=== PATIENT | female | born 1935 | race Caucasian/White ===

== ENCOUNTER 2025-01-31 13:43 | Outpatient (REF) | payer SELFPAY ==
--- OUTSIDE RECORDS SUMMARY | 2025-01-31 15:01 | XMS_ITS | Clinical Summary ---
Author Organization [facility] Address [address] [facility] [address] [place] [phone] Phone Care Team Providers Care Gripper Installer Name Role Phone Sissy Choi MD Primary Care Pr ovider Allergies Active Allergy Reactions Criticality Noted Date Comments Ciprofloxacin-Hydrocortisone 025 weakness Lisinopril 10/25/2024 Metronidazole Hcl 10/25/2024 Medications levothyroxine (SYNTHROID, LEVOTHROID) 50 MCG tablet Take 25 mcg by mouth every morning. 5 Active amLODIPine (NORVASC) 5 MG tablet Take 5 mg by mouth daily. 5 Active atenolol (TENORMIN) 25 MG tablet Take 25 mg by mouth daily. 5 Active chlorthalidone (HYGROTON) 25 MG tablet Take 25 mg by mouth daily. Active cholecalciferol (VITAMIN D3) 25 MCG (1,000 unit) tablet Take 1,000 Units by mouth daily. 5 Active acetaminophen (TYLENOL) 500 MG tablet Take 1,000 mg by mouth every 8 (eight) hours as needed for pain (specific location in comments) (back pain). 5 Active diclofenac sodium (VOLTAREN) 1 % Gel Apply 2 g topically 2 (two) times a day as needed for other (free text field) (back pain). Active naproxen sodium (ALEVE) 220 MG tablet Take 220 mg by mouth every 12 (twelve) hours as needed for pain (specific location in comments) (back). 05/27/202 5 Active Encounters Date Type Department Care Team Description 11/09/2024 10:00 AM EDT Home Care Visit [facility] [address] [place] [phone] Elaine Lazo, PT PT OASIS DISCHARGE VISIT 11/07/2024 10:00 AM EDT Home Care Visit [facility] [address] [place] [phone] Elaine Lazo, PT PT HOME VISIT 11/02/2024 10:15 AM EDT Home Care Visit [facility] [address] [place] [phone] Elaine Lazo, PT PT HOME VISIT 10/31/2024 2:15 PM EDT Home Care Visit [facility] [address] [place] [phone] Elaine Lazo, PT PT HOME VISIT from Last 3 Months Social History Tobacco Use Types Packs/Day Years Used Date Smoking Tobacco: Never Assessed Home Health Assessment: Transportation Answer Date Recorded Lack of Transportation (Medical) No 11/09/2024 Lack of Transportation (Non-Medical) No 11/09/2024 Patient Unable or Declines to Respond No 11/09/2024 Education Answer Date Recorded Are you interested in more education? Not on tim e 10/23/2024 Are you concerned about learning? Not on file 10/23/2024 No 10/23/2024 No 10/23/2024 Digital Access Answer Date Recorded No 10/23/2024 No 10/23/2024 Reliable internet access at home? Not on file 10/23/2024 Device with a working camera? Not on file Comments Unknown Sex and Gender Information Value Date Recorded Sex Assigned at Not on file Legal Sex Female 2:33 PM EDT Gender Identity Not on file Sexual Orientation Not on file Last Filed Vital Signs Vital Sign Reading Time Taken Comments Blood Pressure 112/72 11/09/2024 10:07 AM EDT Pulse 58 11/09/2024 10:07 AM EDT Temperature - - Respiratory Rate - - Oxygen Saturation 98% 11/09/2024 10:07 AM EDT Inhaled Oxygen Concentration - - Weight - - Height - - Body Mass Index - - Plan of Treatment Not on file Medical Devices Not on file [place] [address] [place] [address] [place] [address] [place] [address] Care Teams Gripper Installer Relationship Specialty Start Date End Date Sissy Choi MD [address] [place] [phone] PCP - General 10/24/24 Additional Source Comments The information contained in this document represents components of the legal health record. It is not the complete legal health record.[facility]
--- OUTSIDE RECORDS SUMMARY | 2025-01-31 15:02 | XMS_ITS | Clinical Summary ---
Author Organization [facility] [address] Address [address] [place] [address] Phone Care Team Providers Care Legal Records Clerk Name Role Phone Sissy Choi MD Primary Care Prov ider Allergies Active Allergy Reactions Criticality Noted Date Comments Ciprofloxacin-Hydrocortisone Weakness 009 Lisinopril Other 11/22/2010 Hyperkalemia (5.7) and increase in Cr to 1.6 Metronidazole Hcl 09/06/2008 Medications atenoloL (TENORMIN) 25 mg tablet TAKE 1 TABLET BY MOUTH EVERY DAY 90 tablet 1 10/20/19 25 Active amLODIPine (NORVASC) 5 mg tablet TAKE 1 TABLET BY MOUTH EVERY DAY 90 tablet 1 10/20/19 25 Active levothyroxine (SYNTHROID, LEVOTHROID) 25 mcg tablet TAKE 1 TABLET BY MOUTH EVERY DAY 90 tablet 1 12/08/19 25 Active acetaminophen (TYLENOL) 500 mg tabletIndicati ons:Compressio n fracture of L1 lumbar vertebra, sequela Take 1 tablet (500 mg total) by mouth every 6 (six) hours if needed for moderate pain. 90 tablet 2 12/22/19 25 Active chlorthalidone (HYGROTON) 25 mg tablet TAKE 1 TABLET BY MOUTH 1 TIME EACH DAY. 90 tablet 1 01/18/20 25 Active ibuprofen (ADVIL,MOTRIN) 200 mg tablet Take by mouth every 6 (six) hours if needed. Active chlorthalidone (HYGROTON) 25 mg tablet Take 1 tablet (25 mg total) by mouth 1 (one) time each day. 90 each 1 04/12/20 24 025 Discontinued gabapentin (NEURONTIN) 300 mg capsule Take 1 capsule (300 mg total) by mouth at bedtime. 30 each 2 11/09/19 25 025 Discontinued(Re order) gabapentin (NEURONTIN) 300 mg capsule Take 1 capsule (300 mg total) by mouth at bedtime. 90 capsule 1 01/18/20 25 025 Discontinued(Th erapy completed) Active Problems Problem Noted Date Diagnosed Date Compression fracture of L1 lumbar vertebra, sequ tra 11/01/2024 Overview (11/01/2024): CT scan 10/2024 shows compression fracture L1-L2. 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 Also with left hearing loss, but pt states hearing aids didn't help her much Subclinical hypothyroidism 02/19/2016 Cyst of right ovary 08/08/2015 Overview (03/22/2024): Benign appearance (simple cyst) and very slow growth, no need to remove Hearing loss of right ear 07/25/2014 Overview (03/22/2024): chronic Leg swelling 11/13/2011 CKD (chronic kidney disease) stage 3, GFR 30-59 ml/min ([facility] V24, [facility] V28) 06/03/2010 Inflammatory arthritis 05/06/2010 Overview (03/22/2024): Onset 2009. RF, MADELINE neg Essential hypertension, benign 05/05/2005 Disorder of bone and cartilage 05/05/2005 Overview (03/22/2024): IMO update Encounters Date Type Department Care Team Description 01/25/2025 2:30 PM EDT Office Visit [address] [phone] Sissy Denton MD Compression fracture of T9 vertebra with routine healing, subsequent encounter (Primary Dx); Eye exam, routine; Chronic low back pain, unspecified back pain laterality, unspecified whether sciatica present; Inflammatory arthritis; Secondary hypertension; Bilateral hearing loss, unspecified hearing loss type 01/19/2025 Billing Patient Not Present [address] [phone] Sissy Denton MD Hypertensive chronic kidney disease with stage 1 through stage 4 chronic kidney disease, or unspecified chronic kidney disease (Primary Dx); Stage 3 chronic kidney disease, unspecified whether stage 3a or 3b CKD (CMS/HCC V24, CMS/HCC V28); Inflammatory polyarthropathy (CMS/HCC V24, CMS/HCC V28); Scoliosis, unspecified scoliosis type, unspecified spinal region; Asymptomatic varicose veins of bilateral lower extremities 01/17/[address] [phone] Sissy Denton MD 12/21/2024 3:57 PM EDT - 12/21/2024 11:59 PM EDT Hospital Encounter [address] [phone] Compression fracture of L1 lumbar vertebra, sequela Discharge Disposition: Home or Self Care 12/21/2024 3:57 PM EDT - 12/21/2024 11:59 PM EDT Hospital Encounter [address] [phone] Compression fracture of L1 lumbar vertebra, sequela Discharge Disposition: Home or Self Care 12/21/2024 3:30 PM EDT Office Visit [address] [phone] Sissy Denton MD Compression fracture of L1 lumbar vertebra, sequela (Primary Dx); Chronic bilateral thoracic back pain; Inflammatory arthritis 12/19/[address] [phone] Sissy Denton MD 11/22/[address] [phone] Sissy Denton MD 11/09/[address] [phone] Sissy Denton MD 11/03/[address] [phone] Sissy Denton MD 11/01/2024 1:30 PM EDT Office Visit [address] [phone] Sissy Denton MD Compression fracture of T9 vertebra with routine healing, subsequent encounter (Primary Dx); Compression fracture of L1 lumbar vertebra, sequela; Osteoporosis with current pathological fracture with routine healing, unspecified osteoporosis type, subsequent encounter from Last 3 Months Immunizations Name Administration Dates Next Due Influenza Quadravalent, 0.5m l (Fluzone High-dose) 65yo and older 04/30/2022 Influenza trivalent, 0.5mL ( Fluad) 65yo and older 03/05/2023,04/30/2022,04/17/2021,02/21,03/23/2019,02/22/2018 Influenza trivalent, 0.5mL ( Fluzone High-dose) 65yo and older 03/05/2023,04/17/2021,02/22/2020,02/22 Pfizer (ages 12 & older) Biv alent, COVID-19 04/30/2022 Pfizer SARS-CoV-2 COVID-19, mRNA, LNP-S, preservative free 07/27/2020,07/23/2020,07/06/2020,07/02 Pneumococcal polysaccharide 23 valent (Pneumovax 23) 2yo and older 05/05/2002 Surgical History Surgery Date Site/Laterality Comments CATARACT EXTRACTION Left PROCEDURE: HISTORICAL CATARACT REMOVAL Medical History Medical History Date Comments Disorder of bone and cartila ge, unspecified 05/05/2005 DX:Disorder of bone and cart ilage, unspecified Essential hypertension, benign 05/05/2005 D X:Essential hypertension, benign Diverticulitis 11/28/2009 DX:Diverticuliti s Esophageal reflux 05/05/2005 DX:Esophageal reflux Renal insufficiency 08/30/2008 DX:Renal ins ufficiency Compression fracture of lumb ar vertebra (CMS/HCC V24, CMS/HCC V28) ?2005 DX:Compression fra cture of lumbar vertebra (HCC); COMMENT: ?trauma GERD (gastroesophageal reflux disease) DX:GERD (gastroesophageal reflux disease) Family History Medical History Relation Name Comments Colon cancer Brother 1 Breast cancer Sister 1 age 60's older than 50 Heart attack Sister 2 Ovarian cancer Neg Hx Uterine cancer Neg Hx Relation Name Status Comments Brother 1 Brother 2 Alive 7 BROTHERS-1COL ON CANCER/2 LUNG CANCER Daughter Alive thyroid problem s Father (Age 95) Maternal Grandfather Maternal Grandmother Mother (Age 85) ?COLON CAN CER - pt recalls mom had a colostomy Paternal Grandfather Paternal Grandmother Sister 1 age 60's Alive Sister 2 Sister 3 Alive 6 SISTERS-ALZHE IMERS Son Alive thyroid conditi on Social History Tobacco Use Types Packs/Day Years Used Date Smoking Tobacco: Former Smokeless Tobacco: Never Tobacco Cessation:Counseling Given: Not Answered Alcohol Use Standard Drinks/Week Comments Yes 0 (1 standard drink = 0.6 oz pur e alcohol) Comments No Sex and Gender Information Value Date Recorded Sex Assigned at Not on file Legal Sex Female 3:55 PM EST Gender Identity Not on file Sexual Orientation Not on file Obstetrics History Last Filed Vital Signs Vital Sign Reading Time Taken Comments Blood Pressure 138/78 01/25/2025 2:32 PM EDT Pulse 53 01/25/2025 2:32 PM EDT Temperature 36.7 C (98.1 F) 01/25/2025 2:32 PM EDT Respiratory Rate - - Oxygen Saturation - - Inhaled Oxygen Concentration - - Weight 55.1 kg (121 lb 6.4 oz) 01/25/2025 2:32 P M EDT Height 154.9 cm (5' 1 ) 12/21/2024 3:29 PM EDT Body Mass Index 22.94 12/21/2024 3:29 PM EDT Plan of Treatment Upcoming Encounters Date Type Department Care Team (Late st Contact Info) Description 05/03/2025 2:00 PM EST Office Visit Adult Medicine - [place] [address] [place] [phone] Sissy Choi MD [address] [place] [address] Health Maintenance Due Date Last Done Comments DTaP,Tdap,and Td Vaccines (1 - Tdap) 1954 Zoster Vaccines (1 of 2) 1954 Pneumococcal Vaccine: 50+ Years (2 of 2 - PCV) 05/05/2003 05/05/2002 RSV Immunization Adult Patients (1 - 1-dose 75+ series) 2010 Falls Risk Assessment 04/30/2022 Social Influencers of Health Screening 04/30/2022 COVID-19 Vaccine ( season) 2024 03/12/2023, 04/30/2022, 09/20/2021, Additional history exists Depression Screening 06/01/2024 Influenza Vaccine (#1) 2025 , 03/05/2023, 04/30/2022, Additional history exists Hypertension/CHF/CAD Annual BMP Blood Test 04/13/2025 04/13/2024, 07/21/2023 Osteoporosis Screening (Bone Density Screening) 03/09/2027 03/09/2017 Cholesterol Screening (Lipid Panel) 03/05/2028 03/05/2023 HIB Vaccines Aged Out No longer eligi ble based on patient's age to complete this topic HPV Vaccines Aged Out No longer eligi ble based on patient's age to complete this topic Hepatitis A Vaccines Aged Out No long er eligible based on patient's age to complete this topic Hepatitis B Vaccines Aged Out No long er eligible based on patient's age to complete this topic IPV Vaccines Aged Out No longer eligi ble based on patient's age to complete this topic MMR Vaccines Aged Out No longer eligi ble based on patient's age to complete this topic Meningococcal ACWY Vaccine Aged Out N o longer eligible based on patient's age to complete this topic Meningococcal B Vaccine Aged Out No l onger eligible based on patient's age to complete this topic RSV Immunization Patients Under 20 months Aged Out No longer eligible based on patient's age to complete this topic Varicella Vaccines Aged Out No longer eligible based on patient's age to complete this topic Procedures Procedure Name Priority Date/Time Associated Diagnosis Comments XR THORACIC SPINE 2 VIEWS Routine 12/21/2024 4:14 PM EDT Compression fracture of L1 lumbar vertebra, sequela XR LUMBAR SPINE 4+ VIEWS Routine 12/21/2024 4:13 PM EDT Compression fracture of L1 lumbar vertebra, sequela BASIC METABOLIC PANEL Routine 04/13/2024 10:29 AM EST Stage 3 chronic kidney disease, unspecified whether stage 3a or 3b CKD (CMS/HCC V24, [facility] V28) Essential hypertension, benign LIPID PANEL Routine 03/05/2023 DXA BONE DENSITY STUDY 1+ SITS AXIAL SKEL Routine 03/09/2017 10:19 AM EDT Disorder of bone, unspecified Disorder of cartilage, unspecified from Last 3 Months or Most Recently Relevant to Health Maintenance Results * XR Thoracic Spine 2 Views (12/21/2024 4:14 PM EDT) Anatomical Region Laterality Modality Spine, T-spine Radiographic Rosa ging 12/21/2024 6:40 PM EDT Narrative 12/21/2024 6:41 PM EDT Dorsal spine, 2 views. History compression fracture. Bony structures are osteopenic. Again noted is marked compression deformity of the L1, moderate compression deformity of the T11 and T12 There is no bony destructive lesions. CONCLUSIONS: Compression deformities as detailed. -------- FINAL REPORT -------- Dictated By: Angelia Lainez Dictated Date: 12/21/2024 18:40 ET Assigned Physician: Angelia Lainez Reviewed and Electronically Signed By: Angelia Lainez Signed Date: 12/21/2024 18:41 ET Workstation ID: [id number] Transcribed By: Self Edit Transcribed Date: 12/21/2024 18:40 ET Procedure Note Angelia Lainez MD - 12/21/2024 Dorsal spine, 2 views. History compression fracture. Bony structures are osteopenic. Again noted is marked compressiondeformity of the L1, moderate compression deformity of the T11 and [id number] is no bony destructive lesions. CONCLUSIONS: Compression deformities as detailed. -------- FINAL REPORT -------- Dictated By: Angelia Lainez Dictated Date: 12/21/2024 18:40 ET Assigned Physician: Angelia Lainez Reviewed and Electronically Signed By: Angelia Lainez Signed Date: 12/21/2024 18:41 ET Workstation ID: [id number] Transcribed By: Self Edit Transcribed Date: 12/21/2024 18:40 ET us Sissy Choi MD IMG XR PROCEDURES Final Result * XR Lumbar Spine 4+ Views (12/21/2024 4:13 PM EDT) Anatomical Region Laterality Modality Spine, L-spine Radiographic Rosa ging 12/21/2024 5:48 PM EDT Narrative 12/21/2024 6:38 PM EDT Lumbosacral spine, 4 views. History rule out compression fracture. Comparison with prior plain films from 07/18/2013. There are multiple compression fractures in the lower thoracic segment as well as in the upper lumbar segment. There is marked compression deformity of the L1, mild compression deformity of the L2 and L3. There is mild/moderate compression deformity of the T11 and T12. There are hypertrophic degenerative changes in the facet joints at multiple levels. There are discogenic osteophytes at multiple levels. CONCLUSIONS: Compression deformities in the lower thoracic and upper lumbar segment as detailed. Multilevel bony and discs degenerative changes. Please correlate clinically. -------- FINAL REPORT -------- Dictated By: Angelia Lainez Dictated Date: 12/21/2024 17:48 ET Assigned Physician: Angelia Lainez Reviewed and Electronically Signed By: Angelia Lainez Signed Date: 12/21/2024 18:38 ET Workstation ID: [id number] Transcribed By: Self Edit Transcribed Date: 12/21/2024 17:48 ET Procedure Note Angelia Lainez MD - 12/21/2024 Lumbosacral spine, 4 views. History rule out compression fracture. Comparison with prior plain films from 07/18/2013. There are multiple compression fractures in the lower thoracic segment aswell as in the upper lumbar segment. There is marked compression deformityof the L1, mild compression deformity of the L2 and L3. There ismild/moderate compression deformity of the T11 and T12. There arehypertrophic degenerative changes in the facet joints at multiple levels.There are discogenic osteophytes at multiple levels. CONCLUSIONS: Compression deformities in the lower thoracic and upperlumbar segment as detailed. Multilevel bony and discs degenerativechanges. Please correlate clinically. -------- FINAL REPORT -------- Dictated By: Angelia Lainez Dictated Date: 12/21/2024 17:48 ET Assigned Physician: Angelia Lainez Reviewed and Electronically Signed By: Angelia Lainez Signed Date: 12/21/2024 18:38 ET Workstation ID: [id number] Transcribed By: Self Edit Transcribed Date: 12/21/2024 17:48 ET us Sissy Choi MD IMG XR PROCEDURES Final Result * (ABNORMAL) Basic metabolic panel (04/13/2024 10:29 AM EST) Sodium 140 133 - 145 mmol/L LAB CHEMISTRY METHOD 04/13/2024 1:02 PM EST [facility] Potassium 3.8 3.5 - 5.5 mmol/L LAB CHEMISTRY METHOD 04/13/2024 1:02 PM [facility] Chloride 106 96 - 110 mmol/L LAB CHEMISTRY METHOD 04/13/2024 1:02 PM [facility] CO2 29 21 - 32 mmol/L LAB CHEMISTRY METHOD 04/13/2024 1:02 PM [facility] Anion Gap 5 3 - 11 LAB CHEMISTRY METHOD 04/13/2024 1:02 PM [facility] Glucose 99 70 - 100 mg/dL LAB CHEMISTRY METHOD 04/13/2024 1:02 PM [facility] BUN 33(H) 5 - 25 mg/dL LAB CHEMISTRY METHOD 04/13/2024 1:02 PM [facility] Creatinine 1.21(H) 0.50 - 1.10 mg/dL LAB CHEMISTRY METHOD 04/13/2024 1:02 PM [facility] eGFR 43(L) >=60 mL/min/1. 73m2 LAB CHEMISTRY METHOD 04/13/2024 1:02 PM [facility] Comment:Calculation based on the Chronic Kidney Disease Epidemiology Collaboration (CKD-EPI) equation refit without adjustment for race. BUN/Creatinine Ratio 27.3 LAB CHEMISTRY METHOD 04/13/2024 1:02 PM [facility] Calcium 9.1 8.5 - 10.5 mg/dL LAB CHEMISTRY METHOD 04/13/2024 1:02 PM [facility] Blood Venous blood specimen / Unknown Venipuncture / Unknown 04/13/2024 10:29 AM EST 04/13/2024 10:29 AM EST us Geneva ZAVALETA LAB BLOOD ORDERABLES Final Result [facility] [address] [place] [address], * Lipid panel (03/05/2023) LDL/HDL Ratio 2 0 - 4 Triglycerides 61 0 - 150 mg/dL Cholesterol 176 0 - 200 mg/dL HDL 79 >=40 mg/dL LDL Cholesterol 85 0 - 100 mg/dL Blood Venous blood specimen / Unknown us Historical Provider LAB BLOOD ORDERABLES Shameka hollingsworth Result * DXA BONE DENSITY STUDY 1+ SITS AXIAL SKEL (03/09/2017 10:19 AM EDT) Anatomical Region Laterality Modality Bone Densitometr y 02/19/2017 12:0 0 PM EDT Narrative 03/09/2017 2:51 PM EDT BONE DENSITY Lumbar Spine T-score is -1.6 (SD relative to 20-29 y/o adult) Z-score is +1.1 (SD relative to age matched peers) This is consistent with osteopenia by criteria defined by the WHO. Left Hip T-score is -1.8 Z-score is +0.6 This is consistent with osteopenia by criteria defined by the WHO. Comparison exam(s): no statistically significant change in the bone density of the hip and lumbar spine when compared to most recent bone density examination Confidence level is +/-95%. Impression: Based on the World Health Organization criteria, Praveen Morel should be classified as having osteopenia. This patient has a 15% risk of major osteoporotic fracture and a 4.1% risk of hip fracture over the next 10 years. (World Health Organization Fracture Risk Assessment) [facility] Department of Internal Medicine recommends using National Osteoporosis Foundation (NOF) guidelines in treatment decisions related to osteoporosis. NOF guidelines suggest considering treatment for postmenopausal women and men aged 50 or older presenting with the following: History of hip or vertebral fracture. T-score less than or equal to -2.5 (DXA) at the femoral neck, total hip, or spine, after appropriate evaluation to exclude secondary causes. Low bone mass (T-score between -1.0 and -2.5 at the femoral neck or spine) AND a 10-year probability of a hip fracture greater than or equal to 3% OR a 10-year probability of a major osteoporosis-related fracture greater than or equal to 20% based on the [place]-adapted WHO algorithm Please note that all treatment decisions require clinical judgment and consideration of individual patient factors, including patient preferences, co-morbidities, previous drug use, risk factors not captured in the FRAX model (e.g., frailty, falls, vitamin D deficiency, increased bone turnover, interval significant decline in bone density) and possible under- or over-estimation of fracture risk by FRAX. Procedure Note Bobby Dunbar MD - 07/03/2023 BONE DENSITY Lumbar Spine T-score is -1.6 (SD relative to 20-29 y/o adult) Z-score is +1.1 (SD relative to age matched peers) This is consistent with osteopenia by criteria defined by the WHO. Left Hip T-score is -1.8 Z-score is +0.6 This is consistent with osteopenia by criteria defined by the WHO. Comparison exam(s): no statistically significant change in the bonedensity of the hip and lumbar spine when compared to most recent bonedensity examination Confidence level is +/-95%. Impression: Based on the World Health Organization criteria, Praveen Morel should beclassified as having osteopenia. This patient has a 15% risk of majorosteoporotic fracture and a 4.1% risk of hip fracture over the next 10years. (World Health Organization Fracture Risk Assessment) [facility] Department of Internal Medicine recommendsusing National Osteoporosis Foundation (NOF) guidelines in treatmentdecisions related to osteoporosis. NOF guidelines suggest consideringtreatment for postmenopausal women and men aged 50 or older presentingwith the following: History of hip or vertebral fracture. T-score less than or equal to -2.5 (DXA) at the femoral neck, total hip,or spine, after appropriate evaluation to exclude secondary causes. Low bone mass (T-score between -1.0 and -2.5 at the femoral neck or spine)AND a 10-year probability of a hip fracture greater than or equal to 3% ORa 10-year probability of a major osteoporosis-related fracture greaterthan or equal to 20% based on the [place]-adapted WHO algorithm Please note that all treatment decisions require clinical judgment andconsideration of individual patient factors, including patientpreferences, co-morbidities, previous drug use, risk factors not capturedin the FRAX model (e.g., frailty, falls, vitamin D deficiency, increasedbone turnover, interval significant decline in bone density) and possibleunder- or over-estimation of fracture risk by FRAX. Estrella Collins NP IMG DXA PROCEDURES Final Resu lt from Last 3 Months or Most Recently Relevant to Health Maintenance Insurance [facility] Advance Directives Documents on File Type Date Recorded Patient Operations Forester Expl anation Health Care Decision (hx) 01/27/2014 AD DURANT DIRECTIVE Health Care Decision (hx) 01/27/2014 AD DURANT DIRECTIVE Care Teams Legal Records Clerk Relationship Specialty Start Date End Date Sissy Choi MD [address] [place] [id number] PCP - General Internal Medicine 12/04/20
--- OUTSIDE RECORDS SUMMARY | 2025-01-31 15:02 | XMS_ITS | Encounter Summary ---
Author Organization [facility] [place] [address] Care Team Providers Care Trout Farmer Name Role Phone Sissy Choi MD Primary Care Prov ider Encounter Details Date Type Department Care Team (Late st Contact Info) Description 10/03/2024 Telephone Adult Medicine - [place] [address] [place] [phone] Sissy Choi MD [address] [place] [address] Social History Tobacco Use Types Packs/Day Years Used Date Smoking Tobacco: Former Smokeless Tobacco: Never Alcohol Use Standard Drinks/Week Comments Yes 0 (1 standard drink = 0.6 oz pur e alcohol) Comments No Sex and Gender Information Value Date Recorded Sex Assigned at Not on file Legal Sex Female 3:55 PM EST Gender Identity Not on file Sexual Orientation Not on file documented as of this encounter Progress Notes * Lali Yuan - 10/03/2024 12:20 PM EDT Referral Request: What insurance does the patient have today? Payor: GEORGINA GRIMES - KERRY / Plan: [facility] / Product Type: *No Product type* / Referrals cannot be processed if the insurance is not accurate. If the insurance listed above in red is NO BILLING INFORMATION FOUND FOR THIS ENCOUTNER The patients correct insurance must be obtained and registered in [facility] or their referral can not be processed. Who is calling to request this referral? pt If the caller is not the patient, what is their name? not applicable Ask the patient WHO referred them to this specialty: Patient self referred FIRST and LAST NAME of SPECIALIST PATIENT is seeing: [facility]I npi What specialty is this? Physical therapy DIAGNOSIS Patient is being seen for (Not a body part or a procedure): back pain Have you seen this SPECIALIST for this PROBLEM/DX before? If YES, when? Yes. Have you checked REVIEW or the APPT DESK to see if this referral has already been done or has visits left? no Is this visit: Follow Up Address of Specialist: [address] [place] [id number] npi [phone] Phone # of Specialist: [phone] Fax #: (if applicable): Does patient have an appointment scheduled?: no Date of appointment- (including a retro-request): TBS - 10 visits Is this appointment related to: Not MVA, worker compensation, or surgery related documented in this encounter Plan of Treatment Upcoming Encounters Date Type Department Care Team (Late st Contact Info) Description 05/03/2025 2:00 PM EST Office Visit Adult Medicine [facility] [address] [place] [address] Sissy Choi MD [address] [place] [address] documented as of this encounter Visit Diagnoses Diagnosis Chronic bilateral low back pain with sciatica, sciatica laterality unspecified- Primary documented in this encounter Care Teams Trout Farmer Relationship Specialty Start Date End Date Sissy Choi MD [address] [place], [place] PCP - General Internal Medicine 12/04/20 documented as of this encounter
--- NOTE | 2025-01-31 17:13 | MHC.AU.HA3 ---
Hearing Instrument Follow-Up- Binaural Date of Visit: 01/31/25 Left Ear: Make, Model, Color, Serial Number: [employer] More 2 miniRITE-R SN: [id number] Plant Biology Professor Repair Warranty: 03/20/2024 Plant Biology Professor Loss and Damage Warranty: 03/20/2024 [facility] Service Plan: Battery Size: Rechargeable Sports Psychologist/Slim Tube: Earmold/Dome/CShell/SlimTip: Half skeleton acrylic micromold SN: [id number] Type of Wax Guard: ProWax Dispensed By: Office of Dr. Knowles Date of Fitting: Beginning of 2024 Follow-Up Summary: Accompanied by daughter, Prerna. Previous patient of Julio Isabella at Dr. Knowles's office, both who have retired. Experienced sudden SNHL in right ear >25 years ago. More recently, started having increasing hearing difficulties in left ear. Had 's old BRANDON after he , which Julio reprogrammed for her and added custom EM. However, EM never fit properly, constantly slipping out of ear. EM too loose; half skeleton portion floats in maude bowl not creating any retention. Called [employer], EM out of warranty 10/26/2024. Discussed options including new EM or changing to dome. Roopa opted for new EM. Impression taken, left ear, without incident. Sent to [employer]. Quoted $130; however, should only be $95.00 due at warehouse order picker. Roopa unsure if Julio performed full hearing test prior to fitting BRANDON, thinks it may have just been a check. Recommend updated hearing test as last full test was in 2014. Prerna inquired about BRANDON for right ear. Discussed BiCROS option. 's other BRANDON happened to be a CROS device. Discussed possibility of trialing CROS after hearing test, trying new EM, and refitting left BRANDON with real ear to updated hearing test. Roopa will contact PCP for order for hearing test. Will try to schedule hearing test and EM warehouse order picker/reprogramming for same day. Recommendations: Patient will be contacted when materials have arrived. Diagnosis Code(s): Primary Diagnosis: H90.3 Bilateral Sensorineural Hearing Loss Signature: Provider: Ivanna Ward, [facility]
== END 2025-01-31 13:44 | disposition home or self-care (01) ==
LOC: HO.HAP 13:43
PROVIDERS: PCP Internal Medicine; Visit Provider Internal Medicine
DX: Z13.89 Encounter for screening for other disorder (principal)

== ENCOUNTER 2025-03-15 13:58 | Outpatient (REF) | payer SELFPAY ==
--- OUTSIDE RECORDS SUMMARY | 2025-03-15 17:44 | XMS_ITS | Clinical Summary ---
Author Organization [facility] Address [address] [facility] [address] [place] [address] Phone Care Team Providers Care Steel Fabricating Supervisor Name Role Phone Sissy Choi MD Primary [...] 25 mg by mouth daily. 5 Active cholecalciferol (VITAMIN D3) 25 MCG (1,000 [...] for other (free text field) (back pain). 5 Active naproxen sodium (ALEVE) 220 MG tablet Take 220 mg by mouth every 12 (twelve) hours as needed for pain (specific location in comments) (back). 05/27/202 5 Active Social History Tobacco Use Types Packs/Day Years [...] file Medical Devices Not on file Insurance [facility] [place] [place] [address] [place] [address] [place] [address] [place] [address] [facility] Care Teams Steel Fabricating Supervisor Relationship Specialty Start Date End Date Sissy Choi MD [address] [place] [phone] PCP - General 10/24/24 Additional Source Comments The information contained in this document represents components of the legal health record. It is not the complete legal health record.[facility]
--- OUTSIDE RECORDS SUMMARY | 2025-03-15 17:44 | XMS_ITS | Clinical Summary ---
Author Organization [facility] [address] Address [address] [place] [address] Phone Care Team Providers Care Blood Bank Worker Name Role Phone Sissy Choi MD Primary Care Prov ider Allergies Active Allergy Reactions Criticality Noted Date Comments Ciprofloxacin-Hydrocortisone Weakness 009 Lisinopril Other 11/22/2010 Hyperkalemia (5.7) and increase in Cr to 1.6 Metronidazole Hcl 09/06/2008 Medications atenoloL (TENORMIN) 25 mg tablet TAKE 1 TABLET BY MOUTH EVERY DAY 90 tablet 1 10/19/2024 Active amLODIPine (NORVASC) 5 mg tablet TAKE 1 TABLET BY MOUTH EVERY DAY 90 tablet 1 10/19/2024 Active levothyroxine (SYNTHROID, LEVOTHROID) 25 mcg tablet TAKE 1 TABLET BY MOUTH EVERY DAY 90 tablet 1 12/07/2024 Active acetaminophen (TYLENOL) 500 mg tabletIndicatio ns:Compression fracture of L1 lumbar vertebra, sequela Take 1 tablet (500 mg total) by mouth every 6 (six) hours if needed for moderate pain. 90 tablet 2 12/21/2024 Active chlorthalidone (HYGROTON) 25 mg tablet TAKE 1 TABLET BY MOUTH 1 TIME EACH DAY. 90 tablet 1 01/17/2025 Active ibuprofen (ADVIL,MOTRIN) 200 mg tablet Take by mouth every 6 (six) hours if needed. Active Active Problems Problem Noted Date Diagnosed Date Compression fracture of L1 lumbar vertebra, sequ tra 11/01/2024 Overview (11/01/2024): CT scan 10/2024 shows compression fracture L1-L2. 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 V24, [facility]/ [facility] V28) 09/21/2023 Overview (03/22/2024): Causing back pain [...] kidney disease) stage 3, GFR 30-59 ml/min ([facility] V24, [facility] V28) 06/03/2010 Inflammatory arthritis 05/06/2010 Overview (03/22/2024): Onset 2009. RF, MADELINE neg Essential hypertension, benign 05/05/2005 Disorder of bone and cartilage 05/05/2005 Overview (03/22/2024): IMO update Encounters Date Type Department Care Team Description 01/25/2025 2:30 PM EDT Office Visit Adult Medicine [address] [phone] Sissy Denton MD Compression fracture of T9 vertebra with routine healing, subsequent encounter (Primary Dx); Eye exam, routine; Chronic low back pain, unspecified back pain laterality, unspecified whether sciatica present; Inflammatory arthritis; Secondary hypertension; Bilateral hearing loss, unspecified hearing loss type 01/19/2025 Billing Patient Not Present [address] [phone] Sissy Denton MD Hypertensive chronic kidney disease with stage 1 through stage 4 chronic kidney disease, or unspecified chronic kidney disease (Primary Dx); Stage 3 chronic kidney disease, unspecified whether stage 3a or 3b CKD ([facility] V24, [facility] V28); Inflammatory polyarthropathy ([facility] V24, [facility] V28); Scoliosis, unspecified scoliosis type, unspecified spinal region; Asymptomatic varicose veins of bilateral lower extremities 01/17/2025 Telephone Adult [address] [phone] Sissy Denton MD 12/21/2024 3:57 PM EDT - 12/21/2024 11:59 PM EDT Hospital Encounter [address] [phone] Compression fracture of L1 lumbar vertebra, sequela Discharge Disposition: Home or Self Care 12/21/2024 3:57 PM EDT - 12/21/2024 11:59 PM EDT Hospital Encounter [address] [phone] Compression fracture of L1 lumbar vertebra, sequela Discharge Disposition: Home or Self Care 12/21/2024 3:30 PM EDT Office Visit [address] [phone] Sissy Denton MD Compression fracture of L1 lumbar vertebra, sequela (Primary Dx); Chronic bilateral thoracic back pain; Inflammatory arthritis 12/19/[address] [phone] Sissy Denton MD from Last 3 Months Immunizations Immunization Administration Dates Next Due Influenza Quadravalent, 0.5m [...] PM EST Office Visit Adult Medicine - [address] [phone] Sissy Choi MD [address] [place] [address] Health Maintenance Due Date Last Done Comments DTaP,Tdap,and Td Vaccines (1 - Tdap) 1954 Zoster Vaccines (1 of 2) 1954 Pneumococcal Vaccine: 50+ Years (2 of 2 - PCV) 05/05/2003 05/05/2002 RSV Immunization Adult Patients (1 - 1-dose 75+ series) 2010 Falls Risk Assessment 04/30/2022 Social Influencers of Health Screening 04/30/2022 Depression Screening 06/01/2024 COVID-19 Vaccine ( season) 2025 03/12/2023, 04/30/2022, 09/20/2021, Additional history exists Influenza Vaccine (#1) 2025 , 03/05/2023, 04/30/2022, [...] 3a or 3b CKD (CMS/HCC V24, CMS/HCC V28) Essential hypertension, benign LIPID PANEL Routine [...] Signed Date: 12/21/2024 18:41 ET Workstation ID: [id number] Transcribed By: Self Edit Transcribed Date: 12/21/2024 18:40 ET Procedure Note Angelia Lainez MD - 12/21/2024 Dorsal spine, 2 views. History compression fracture. Bony structures are osteopenic. Again noted is marked compressiondeformity of the L1, moderate compression deformity of the T11 and H78Chrgl is no bony destructive lesions. CONCLUSIONS: Compression deformities as detailed. -------- FINAL REPORT -------- Dictated By: Angelia Lainez Dictated Date: 12/21/2024 18:40 ET Assigned Physician: Angelia Lainez Reviewed and Electronically Signed By: Angelia Lainez Signed Date: 12/21/2024 18:41 ET Workstation ID: [id number] Transcribed By: Self Edit Transcribed Date: 12/21/2024 [...] Signed Date: 12/21/2024 18:38 ET Workstation ID: [id number] Transcribed By: Self Edit Transcribed Date: 12/21/2024 [...] Signed Date: 12/21/2024 18:38 ET Workstation ID: [id number] Transcribed By: Self Edit Transcribed Date: 12/21/2024 17:48 ET us Sissy Choi MD IMG XR PROCEDURES Final Result * (ABNORMAL) Basic metabolic panel (04/13/2024 10:29 AM EST) Sodium 140 133 - 145 mmol/L LAB CHEMISTRY METHOD 04/13/2024 1:02 PM [facility] Potassium 3.8 3.5 - 5.5 mmol/L LAB CHEMISTRY METHOD 04/13/2024 1:02 PM [facility] Chloride 106 96 - 110 mmol/L LAB CHEMISTRY METHOD 04/13/2024 1:02 PM [facility] CO2 29 21 - 32 mmol/L LAB CHEMISTRY METHOD 04/13/2024 1:02 PM [facility] Anion Gap 5 3 - 11 LAB CHEMISTRY METHOD 04/13/2024 1:02 PM [facility] Glucose 99 70 - 100 mg/dL LAB CHEMISTRY METHOD 04/13/2024 1:02 PM [facility] BUN 33(H) 5 - 25 mg/dL LAB CHEMISTRY METHOD 04/13/2024 1:02 PM [facility] Creatinine 1.21(H) 0.50 - 1.10 mg/dL LAB CHEMISTRY METHOD 04/13/2024 1:02 PM [facility] eGFR 43(L) >=60 mL/min/1. 73m2 LAB CHEMISTRY METHOD 04/13/2024 1:02 PM [facility] Comment:Calculation based on the Chronic Kidney Disease Epidemiology Collaboration (CKD-EPI) equation refit without adjustment for race. BUN/Creatinine Ratio 27.3 LAB CHEMISTRY METHOD 04/13/2024 1:02 PM [facility] Calcium 9.1 8.5 - 10.5 mg/dL LAB CHEMISTRY METHOD 04/13/2024 1:02 PM EST [facility] Blood Venous blood specimen / Unknown Venipuncture / Unknown 04/13/2024 10:29 AM EST 04/13/2024 10:29 AM EST us [place] ZAVALETA LAB BLOOD ORDERABLES Final Result [facility] [address] [place] [address], [place] [phone] * Lipid panel (03/05/2023) LDL/HDL Ratio 2 0 - 4 Triglycerides 61 0 - 150 mg/dL Cholesterol 176 0 - 200 mg/dL HDL 79 >=40 mg/dL LDL Cholesterol 85 0 - 100 mg/dL Blood Venous blood specimen / Unknown Historical Provider LAB BLOOD ORDERABLES Shameka l Result * DXA BONE DENSITY STUDY 1+ [...] (World Health Organization Fracture Risk Assessment) [facility] Department of Internal Medicine recommends using National [...] (World Health Organization Fracture Risk Assessment) [facility] Department of Internal Medicine recommendsusing National Osteoporosis [...] Most Recently Relevant to Health Maintenance Insurance [facility] Advance Directives Documents on File Type Date Recorded Patient Paid Search Analyst Expl anation Health Care Decision (hx) 01/27/2014 AD DURANT DIRECTIVE Health Care Decision (hx) 01/27/2014 AD DURANT DIRECTIVE Care Teams Blood Bank Worker Relationship Specialty Start Date End Date iSssy Choi MD [address] [place] [phone] PCP - General Internal Medicine 12/04/20
== END 2025-03-15 13:59 | disposition home or self-care (01) ==
LOC: HO.HAP 13:58
PROVIDERS: Visit Provider Internal Medicine
DX: Z46.1 Encounter for fitting and adjustment of hearing aid (principal); H90.3 Sensorineural hearing loss, bilateral
CPT/HCPCS: V5264

== ENCOUNTER 2025-04-12 10:42 | Outpatient (REF) | payer BC, SELFPAY ==
--- OUTSIDE RECORDS SUMMARY | 2025-04-12 12:52 | XMS_ITS | Encounter Summary ---
Author Organization [facility] [place] [address] Care Team Providers Care Terra Cotta Roofer Name Role Phone Sissy Choi MD Primary Care Prov ider Reason for Visit * Reason Onset Date Comments Faxed Order Initial Evaluation/POC 03/21/2025 Encounter Details Date Type Department Care Team (Late st Contact Info) Description 03/22/2025 Telephone Adult Medicine - [address] [phone] Sissy Choi MD [address] [place] [address] Social History Tobacco Use Types Packs/Day Years [...] as of this encounter Progress Notes * Kacey Gregg - 03/22/2025 7:25 AM EDT PLEASE DOCUMENT/ CLOSE MESSAGE WHEN ORDER HAS BEEN FAXED Faxed order Initial Evaluation/plan of care received from [facility], requesting signature from provider. Please sign and fax back to [phone]. Order in orange folder documented in this encounter Plan of Treatment Upcoming Encounters Date Type Department Care Team (Late st Contact Info) Description 09/22/2025 11:00 AM EDT Office Visit Adult Medicine - [place] [address] [place] [phone] Sissy Choi MD [address] [place] [address] documented as of this encounter Visit Diagnoses Not on filedocumented in this encounter Care Teams Terra Cotta Roofer Relationship Specialty Start Date End Date Sissy Choi MD [address] [place] [address] PCP - General Internal Medicine 12/04/20 documented as of this encounter
--- OUTSIDE RECORDS SUMMARY | 2025-04-12 12:53 | XMS_ITS | Clinical Summary ---
Author Organization [facility] [address] [facility] [address] Address [address] [place] [address] Phone Care Team Providers Care Leather Products Supervisor Name Role Phone Sissy Choi MD [...] a 04/12/2024 Scoliosis 09/21/2023 Thoracic compression fracture ([facility] V24, [facility] V28) 09/21/2023 Overview (03/22/2024): Causing back [...] kidney disease) stage 3, GFR 30-59 ml/min ([facility] V24, [facility] V28) 06/03/2010 Inflammatory arthritis 05/06/2010 Overview (03/22/2024): Onset 2009. RF, MADELINE neg Essential hypertension, benign 05/05/2005 Disorder of bone and cartilage 05/05/2005 Overview (03/22/2024): IMO update Encounters Date Type Department Care Team Description 03/24/2025 10:30 AM EDT Office Visit Adult Medicine [address] [phone] Sissy Denton MD Inflammatory arthritis (Primary Dx); Compression fracture of T9 vertebra with routine healing, subsequent encounter; Postural kyphosis of thoracolumbar region; Essential hypertension, benign 03/22/[address] [phone] Sissy Denton MD 03/20/[address] [phone] Sissy Denton MD 01/25/2025 2:30 PM EDT Office Visit [address] [phone] Sissy Denton MD Compression fracture of T9 vertebra with routine healing, subsequent encounter (Primary Dx); Eye exam, routine; Chronic low back pain, unspecified back pain laterality, unspecified whether sciatica present; Inflammatory arthritis; Secondary hypertension; Bilateral hearing loss, unspecified hearing loss type 01/19/2025 Billing Patient Not Present [address] [phone] Sissy Denton MD Hypertensive chronic kidney disease with stage 1 through stage 4 chronic kidney disease, or unspecified chronic kidney disease (Primary Dx); Stage 3 chronic kidney disease, unspecified whether stage 3a or 3b CKD (CMS/HCC V24, CMS/HCC V28); Inflammatory polyarthropathy (CMS/HCC V24, CMS/HCC V28); Scoliosis, unspecified scoliosis type, unspecified spinal region; Asymptomatic varicose veins of bilateral lower extremities 01/17/[address] [phone] Sissy Denton MD from Last 3 Months Immunizations Immunization Administration Dates Next Due Influenza Quadravalent, 0.5m l (Fluzone High-dose) 65yo and older 04/30/2022 Influenza trivalent, 0.5mL ( Fluad) 65yo and older 03/24/2025,03/05/2023,04/30/2022,04/17,02/22/2020,03/23/2019,02/22/2018 Influenza trivalent, 0.5mL ( Fluzone High-dose) 65yo [...] Sign Reading Time Taken Comments Blood Pressure 134/52 03/24/2025 10:19 AM EDT Pulse 53 03/24/2025 10:19 AM EDT Temperature 36.6 C (97.8 F) 03/24/2025 10:19 AM EDT Respiratory Rate - - Oxygen Saturation - - Inhaled Oxygen Concentration - - Weight 53.5 kg (118 lb) 03/24/2025 10:19 AM EDT Height 180.3 cm (5' 11 ) 03/24/2025 10:19 AM EDT Body Mass Index 16.46 03/24/2025 10:19 AM EDT Plan of Treatment Upcoming Encounters Date Type Department Care Team (Late st Contact Info) Description 09/22/2025 11:00 AM EDT Office Visit Adult Medicine - [place] [address] [place] [address] Sissy Choi MD [address] [place] [address] Health Maintenance Due Date Last Done Comments [...] 2025 03/12/2023, 04/30/2022, 09/20/2021, Additional history exists Hypertension/CHF/CAD Annual BMP Blood Test 04/13/2025 04/13/2024, 07/21/2023 Osteoporosis Screening (Bone Density Screening) 03/09/2027 03/09/2017 Cholesterol Screening (Lipid Panel) 03/05/2028 03/05/2023 Influenza Vaccine Completed 03/24/2025, , 03/05/2023, Additional history exists HIB Vaccines Aged Out No longer eligi [...] Procedure Name Priority Date/Time Associated Diagnosis Comments BASIC METABOLIC PANEL Routine 04/13/2024 10:29 AM [...] Recently Relevant to Health Maintenance Results * (ABNORMAL) Basic metabolic panel (04/13/2024 10:29 AM EST) Sodium 140 133 - 145 mmol/L LAB CHEMISTRY METHOD 04/13/2024 1:02 PM EST [facility] Potassium 3.8 3.5 - 5.5 mmol/L LAB CHEMISTRY METHOD 04/13/2024 1:02 PM EST [facility] Chloride 106 96 - 110 mmol/L LAB CHEMISTRY METHOD 04/13/2024 1:02 PM EST [facility] CO2 29 21 - 32 mmol/L LAB CHEMISTRY METHOD 04/13/2024 1:02 PM [facility] Anion Gap 5 3 - 11 LAB CHEMISTRY METHOD 04/13/2024 1:02 PM [facility] Glucose 99 70 - 100 mg/dL LAB CHEMISTRY METHOD 04/13/2024 1:02 PM [facility] BUN 33(H) 5 - 25 mg/dL LAB CHEMISTRY METHOD 04/13/2024 1:02 PM [facility] Creatinine 1.21(H) 0.50 - 1.10 mg/dL LAB CHEMISTRY METHOD 04/13/2024 1:02 PM [facility] eGFR 43(L) >=60 mL/min/1. 73m2 LAB CHEMISTRY METHOD 04/13/2024 1:02 PM [facility] Comment:Calculation based on the Chronic Kidney Disease Epidemiology Collaboration (CKD-EPI) equation refit without adjustment for race. BUN/Creatinine Ratio 27.3 LAB CHEMISTRY METHOD 04/13/2024 1:02 PM [facility] Calcium 9.1 8.5 - 10.5 mg/dL LAB CHEMISTRY METHOD 04/13/2024 1:02 PM [facility] Blood Venous blood specimen / Unknown Venipuncture / Unknown 04/13/2024 10:29 AM EST 04/13/2024 10:29 AM EST [place] ZAVALETA LAB BLOOD ORDERABLES Final Result [facility] [address] [place] [address], * Lipid panel (03/05/2023) LDL/HDL Ratio 2 0 - 4 Triglycerides 61 0 - 150 mg/dL Cholesterol 176 0 - 200 mg/dL HDL 79 >=40 mg/dL LDL Cholesterol 85 0 - 100 mg/dL Blood Venous blood specimen / Unknown us Historical Provider LAB BLOOD ORDERABLES Shameka hollingsworth Result * DXA BONE DENSITY STUDY 1+ RAFFAELE BYRD (03/09/2017 10:19 AM EDT) Anatomical Region Laterality [...] on the World Health Organization criteria, Praveen Shay should be classified as having osteopenia. This patient has a 15% risk of major osteoporotic fracture and a 4.1% risk of hip fracture over the next 10 years. (World Health Organization Fracture Risk Assessment) [facility] Department of Internal Medicine recommends using National [...] on the World Health Organization criteria, Praveen Shay should beclassified as having osteopenia. This patient has a 15% risk of majorosteoporotic fracture and a 4.1% risk of hip fracture over the next 10years. (World Health Organization Fracture Risk Assessment) [facility] Department of Internal Medicine recommendsusing National Osteoporosis [...] Most Recently Relevant to Health Maintenance Insurance [facility] Advance Directives Documents on File Type Date Recorded Patient Soup Mixer Expl anation Health Care Decision (hx) 01/27/2014 AD DURANT DIRECTIVE Health Care Decision (hx) 01/27/2014 AD DURANT DIRECTIVE Care Teams Leather Products Supervisor Relationship Specialty Start Date End Date Sissy Choi MD [address] [place] [phone] PCP - General Internal Medicine 12/04/20
--- OUTSIDE RECORDS SUMMARY | 2025-04-12 12:53 | XMS_ITS | Clinical Summary ---
Author Organization [facility] Address [address] [facility] [address] [place] [address] Phone Care Team Providers Care Project Management Advisor Name Role Phone Sissy Choi MD Primary [...] file Medical Devices Not on file Insurance [facility] [place] [address] [address] [place] [address] [place] [address] [place] [address] [place] [address] [facility] Care Teams Project Management Advisor Relationship Specialty Start Date End Date Sissy Choi MD [address] [place] [address] PCP - General 10/24/24 Additional Source Comments The information contained in this document represents components of the legal health record. It is not the complete legal health record.[facility]
== END 2025-04-12 10:43 | disposition home or self-care (01) ==
LOC: HO.SH 10:42
PROVIDERS: Visit Provider Internal Medicine
DX: Z01.118 Encounter for examination of ears and hearing with other abnormal findings (principal); H90.3 Sensorineural hearing loss, bilateral
CPT/HCPCS: 92557; 92567